=== PATIENT | female | born 1995 | race Caucasian/White ===

== ENCOUNTER → 2017-10-08 10:32 | Outpatient (CLI) | payer MEDICARE, OTHER, MEDICAID ==
[~2017-10-08 10:32] MED LIST: FAMOTIDINE10 MG PO; FLAGYL500 MG PO; LOVENOX40 MG/0.4 SC; PRENATAL COMPLE1 TAB PO
== END | disposition home or self-care (01) ==
LOC: D.US 10:32
DX: R10.2 Pelvic and perineal pain (principal)

== ENCOUNTER 2017-12-26 22:02 | Emergency (ER) | payer MEDICAID ==
[~2017-12-26] VITALS: Ht 165.1 cm; Wt 110.5 kg
[2017-12-26 22:24] VITALS: Ht 165.1 cm; Wt 110.5 kg
[2017-12-26] MEDS ORDERED: ELIQUIS5 MG PO (22:26)
[2017-12-26] MEDS ORDERED: PAXIL10 MG (22:27)
[2017-12-26] MEDS ORDERED: NEXIUM20 MG PO (22:27)
[2017-12-26] MEDS ORDERED: PRAVACHOL20 MG (22:27)
[2017-12-26] MEDS ORDERED: TOPAMAX15 MG (22:27)
[2017-12-27 00:06] LABS: APPEARANCE HAZY (CLEAR); BILIRUBIN NEGATIVE (NEGATIVE); COLOR YELLOW (YELLOW); GLUCOSE NEGATIVE (NEGATIVE); HCG URINE NEGATIVE (NEGATIVE); KETONE NEGATIVE (NEGATIVE); NITRITE NEGATIVE (NEGATIVE); PROTEIN NEGATIVE (NEGATIVE); SPECIFIC GRAVITY 1.015 (1.005-1.020); UROBILINOGEN NORMAL (NORMAL)
[2017-12-27 00:09] LABS: CKMB 0.7 U/L (0.0-3.6); CREATINE KINASE 146 UL (21-215)
[2017-12-27 00:09] LABS: AMORPHOUS SEDIMENT <1+ /lpf (NONE SEEN); BACTERIA MODERATE /hpf (NONE SEEN); EPITHELIAL CELLS 0-5 /hpf (0-5); GRANULAR CAST RARE /lpf (NONE SEEN); RED CELLS - URINE 25-50 /hpf (0-5); WHITE CELLS - URINE 0-5 /hpf (0-5)
[2017-12-27 00:12] LABS: UDS - AMPHET NEGATIVE QUAL (NEGATIVE); UDS - BARB NEGATIVE QUAL (NEGATIVE); UDS - BENZO NEGATIVE QUAL (NEGATIVE); UDS - COCAINE NEGATIVE QUAL (NEGATIVE); UDS - OPIATE POSITIVE QUAL (NEGATIVE); UDS - PCP NEGATIVE QUAL (NEGATIVE); UDS - THC NEGATIVE QUAL (NEGATIVE)
[2017-12-27 02:01] VITALS: BP 97/51
== END 2017-12-27 02:02 | disposition home or self-care (01) ==
LOC: D.ER 22:02
PROVIDERS: Family Medicine
DX: R07.89 Other chest pain (principal); Z86.2 Personal history of diseases of the blood and blood-forming organs and certain disorders involving the immune mechanism; Z86.73 Personal history of transient ischemic attack (TIA), and cerebral infarction without residual deficits; Z86.718 Personal history of other venous thrombosis and embolism; Z79.01 Long term (current) use of anticoagulants

== ENCOUNTER 2017-12-30 10:23 | Emergency (ER) | payer MEDICAID ==
[~2017-12-30] VITALS: Ht 165.1 cm; Wt 110.5 kg
[~2017-12-30 10:23] MED LIST changes: +ELIQUIS5 MG PO; +NEXIUM20 MG PO; +PAXIL10 MG; +PRAVACHOL20 MG; +TOPAMAX15 MG
[2017-12-30 10:28] VITALS: Ht 165.1 cm; Wt 110.5 kg
[2017-12-30 11:02] LABS: BASOPHILS 0.4 % (0-2); EOSINOPHILS 1.4 % (0-7); HEMATOCRIT 39.7 % (36.0-48.0); HEMOGLOBIN 12.8 g/dL (12-16); IMMATURE GRANULOCYTES 0.3 % (0-5); LYMPHOCYTES 28.2 % (15-50); MCH 28.6 pg (26.0-34.0); MCHC 32.2 g/dL (31.0-37.0); MCV 88.6 fL (80.0-100.0); MONOCYTES 6.5 % (2-11); NEUTROPHILS 63.2 % (40-80); PLATELET COUNT 280 10x3/uL (130-400); RBC 4.48 10x6/uL (4.00-5.40); RDW 14.8 % (11.5-14.5); WBC 7.9 10x3/uL (4.8-10.8)
[2017-12-30 11:28] LABS: ALBUMIN 3.2 g/dL (3.4-5.0); ALKALINE PHOSPHATASE 100 U/L (46-116); ALT (SGPT) 27 U/L (10-68); CALC OSMOLALITY 274 mosm/kg (275-300); CALCIUM 8.8 mg/dL (8.5-10.1); CARBON DIOXIDE 26.8 mmol/L (21.0-32.0); CHLORIDE - SERUM 105 mmol/L (98-107); CREATININE - SERUM 0.6 mg/dL (0.6-1.3); GLUCOSE 102 mg/dL (74-106); POTASSIUM - SERUM 4.1 mmol/L (3.5-5.1); PROTEIN - SERUM 7.7 g/dL (6.4-8.2); SODIUM 138 mmol/L (136-145); UREA NITROGEN 11 mg/dL (7-18); eGFR NON AFRICAN AMERICAN > 90 mL/min (90-120)
[2017-12-30 11:39] LABS: TROPONIN-I < 0.017 ng/mL (0.000-0.060)
[2017-12-30 18:38] VITALS: BP 105/63
== END 2017-12-30 18:39 | disposition home or self-care (01) ==
LOC: D.ER 10:23
PROVIDERS: Family Medicine
DX: R07.81 Pleurodynia (principal); Z86.718 Personal history of other venous thrombosis and embolism; Z86.69 Personal history of other diseases of the nervous system and sense organs; E11.9 Type 2 diabetes mellitus without complications; K21.9 Gastro-esophageal reflux disease without esophagitis

== ENCOUNTER 2018-05-31 14:44 | Emergency (ER) | payer MEDICAID ==
[~2018-05-31] VITALS: Ht 165.1 cm; Wt 112.7 kg
[2018-05-31 14:56] VITALS: Ht 165.1 cm; Wt 112.7 kg
[2018-05-31] MEDS ORDERED: MEDROL DOSE PACK4 MG PO (16:31)
[2018-05-31] MEDS ORDERED: VOLTAREN75 MG PO (16:31)
[2018-05-31 18:03] VITALS: BP 99/61
== END 2018-05-31 18:03 | disposition home or self-care (01) ==
LOC: D.ER 14:44
DX: M25.50 Pain in unspecified joint (principal); M79.10 Myalgia, unspecified site; Z86.73 Personal history of transient ischemic attack (TIA), and cerebral infarction without residual deficits; G40.909 Epilepsy, unspecified, not intractable, without status epilepticus; E11.9 Type 2 diabetes mellitus without complications

== ENCOUNTER 2018-07-15 08:56 | Emergency (ER) | payer MEDICAID ==
[~2018-07-15] VITALS: Ht 165.1 cm; Wt 114.1 kg
[~2018-07-15 08:56] MED LIST changes: +MEDROL DOSE PACK4 MG PO; +VOLTAREN75 MG PO
[2018-07-15 09:06] VITALS: Ht 165.1 cm; Wt 114.1 kg
[2018-07-15] MEDS ORDERED: ULTRAM50 MG PO (12:47)
[2018-07-15] MEDS ORDERED: ROBAXIN500 MG PO (12:47)
[2018-07-15 13:49] VITALS: BP 109/61
== END 2018-07-15 13:50 | disposition home or self-care (01) ==
LOC: D.ER 08:56
DX: M54.5 Low back pain (principal); M25.551 Pain in right hip; R20.2 Paresthesia of skin; V43.52XA Car driver injured in collision with other type car in traffic accident, initial encounter; Y93.89 Activity, other specified; Y92.410 Unspecified street and highway as the place of occurrence of the external cause; Z86.73 Personal history of transient ischemic attack (TIA), and cerebral infarction without residual deficits; G40.909 Epilepsy, unspecified, not intractable, without status epilepticus; E11.9 Type 2 diabetes mellitus without complications

== ENCOUNTER 2020-08-31 09:22 | Observation (INO) | payer MEDICAID ==
[~2020-08-31] VITALS: Ht 165.1 cm; Wt 122.7 kg
[2020-08-31] VITALS (11 sets, daily range): BP systolic 115–135; BP diastolic 55–76; Ht 165.1 cm; Wt 122.7 kg
--- NOTE | ~2020-08-31 | OP ---
PATIENT NAME: LASHAWN GOODWIN MEDICAL RECORD: [id number] :95 LOCATION:[id number] ADMISSION DATE:08/31/20 SURGEON: JOSE GUADALUPE LUDWIG MD DATE OF OPERATION: 08/31/2020 PREOPERATIVE DIAGNOSES: 1. Menorrhagia. 2. Dysmenorrhea. POSTOPERATIVE DIAGNOSES: 1. Menorrhagia. 2. Dysmenorrhea. PROCEDURES: Total laparoscopic hysterectomy, bilateral salpingectomy. FINDINGS: Normal uterus, tubes, and ovaries. ANESTHESIA: General. ESTIMATED BLOOD LOSS: 50 mL. COMPLICATIONS: None. SPECIMENS: Uterus, cervix, bilateral tubes. Sponge, lap and needle counts were correct. The patient tolerated the procedure well and was taken to the recovery room in stable condition. DESCRIPTION OF PROCEDURE: The risks, benefits and alternatives of the procedure were explained to the patient. Informed consent was obtained. She was taken to the OR where general anesthetic was given. She was prepped and draped in normal sterile fashion and placed in lithotomy position. Kirkland speculum was placed in the vagina. Single-toothed tenaculum was placed on the anterior lip of the cervix. A Massive Analytic uterine manipulator was placed into the endometrial cavity and the colpotomizer ring sutured to the cervix at 12 o'clock using a 0 Vicryl stitch. A 15-blade scalpel was used to make an infraumbilical incision and a 5-mm trocar placed under direct laparoscopic visualization into the abdominal cavity, insufflated with CO2 gas to obtain a pneumoperitoneum. The patient was placed in Trendelenburg and the left lower quadrant 11-mm and a 5-mm trocar were placed. The Olympus Thunderbeat device was used throughout the procedure for transection, ligation and hemostasis. We initially identified the fallopian tubes bilaterally, transected these with the Thunderbeat device, removing the tubes through the 11-mm trocar. We then identified the uteroovarian ligaments bilaterally, transected these with the Thunderbeat as well maintaining excellent hemostasis. We then came across the round ligaments bilaterally and dissected the anterior and posterior leaf of the broad ligament. A bladder flap was created, pushing the bladder down below the colpotomizer ring. We then skeletonized the uterine vasculature. Using blunt dissection, we then transected and ligated the uterine vessels using the Thunderbeat device as well. An anterior and posterior colpotomy was performed with the monopolar hook. The remaining portion of the specimen was amputated. The specimen was removed through the vagina and the vaginal cuff was closed with a running 2-0 V-Loc stitch. There was excellent hemostasis. Bilateral ureteral peristalsis was seen. We then removed all CO2 gas. All trocars were removed. We placed Micah along the vaginal cuff. We then closed the skin with 4-0 Monocryl, injected OPERATIVE REPORT [id number] LASHAWN GOODWIN DA with 0.5% Marcaine and the patient was taken to recovery room in stable condition. TRANSINT:[id number] Voice Confirmation ID: [id number] DOCUMENT ID: [id number] JOSE GUADALUPE LUDWIG MD CC: [id number] DICTATION DATE: 09/06/20 1153 CLINICAL EDUCATION ASSISTANT: 09/06/20 1254 DIS IN 09/01/20 [facility] [address] [place] [address]
[~2020-08-31 09:22] MED LIST changes: +ALDACTONE50 MG PO; +COREG12.5 MG PO; +EMGALITY IM; +ROBAXIN500 MG PO; +TOPAMAX100 MG PO; -TOPAMAX15 MG; +TOPAMAX50 MG PO; +ULTRAM50 MG PO; +VITAMIN D10000 UNIT PO; +[UNRECOGNIZED DRUG - OTHER] PO
[2020-08-31 09:53] LABS: BASOPHILS 0.3 % (0-2); EOSINOPHILS 1.1 % (0-7); IMMATURE GRANULOCYTES 0.3 % (0-5); LYMPHOCYTE ABS# 1.88 10x3/uL (1.18-3.74); MCHC 32.5 g/dL (31.0-37.0); MCV 92.2 fL (80.0-100.0); MEAN PLATELET VOLUME 9.8 fL (7.4-10.4); MONOCYTES 6.4 % (2-11); NEUTROPHIL ABS# 5.33 10x3/uL (1.56-6.13); NEUTROPHILS 67.9 % (40-80); PLATELET COUNT 301 10x3/uL (130-400); RBC 4.34 10x6/uL (4.00-5.40); RDW 13.7 % (11.5-14.5); WBC 7.8 10x3/uL (4.8-10.8)
[2020-08-31 10:01] LABS: INR 1.18 (0.85-1.17); PROTIME 13.9 SECONDS (11.6-15.0)
[2020-08-31 10:04] LABS: CALC OSMOLALITY 272 mosm/kg (275-300); CALCIUM 8.9 mg/dL (8.5-10.1); CARBON DIOXIDE 23.9 mmol/L (21.0-32.0); CHLORIDE - SERUM 103 mmol/L (98-107); CREATININE - SERUM 0.9 mg/dL (0.6-1.3); GLUCOSE 99 mg/dL (74-106); POTASSIUM - SERUM 3.9 mmol/L (3.5-5.1); SODIUM 137 mmol/L (136-145); UREA NITROGEN 11 mg/dL (7-18); eGFR NON AFRICAN AMERICAN 81 mL/min (90-120)
[2020-08-31] MEDS ORDERED: LOVENOX40 MG/0.4 SC (11:44)
--- NOTE | 2020-08-31 16:21 | NUR ---
PT RECEIVED VIA BED TO ROOM 1278. PT AAOx3, 2L O2 VIA NC, VSS, SEE FLOWSHEET FOR DOC. PT SMILING, TALKING, REQUESTING IV TO BE RESITED. RATES PAIN 10/10, REQUESTING PAIN MED. LR INFUSING AT 150ML/H TO LEFT UPPER ARM PIV. 3 LAP INCISIONS TO ABD ARE C/D WITH DERMABOND INTACT. ZHENG CATH DRAINING DARK YELLOW URINE TO BEDSIDE DRAINAGE, APPROX 45ML NOTED IN UROMETER. SCANT BRIGHT RED BLOOD NOTED VAGINALLY, PERIPAD PLACED TO MONITOR. SCD'S ON LE BILAT AND ON PUMP. WILL NOTIFY MD OF NEED FOR POST-OP ORDERS.
--- NOTE | 2020-08-31 17:02 | NUR ---
PT ADMIN PERCOCET 10/325MG PO ORDERED PRN PAIN, SEE EMAR FOR DOC. PT PROVIDED WITH WATER, JELLO, AND SALTINE CRACKERS PER REQUEST AND PER ORDER TO ADVANCE DIET TOLERATED. PT DENIES FURTHER NEEDS. SRUx2, CL IN REACH.
--- NOTE | 2020-08-31 17:19 | NUR ---
PT CALLS OUT REQUESTING SOMETHING FOR NAUSEA. ZOFRAN ADMIN IV ORDERED, SEE EMAR FOR DOC. PERIPAD CHECKED, NO ADDITIONAL BLEEDING NOTED. PT REASSURED. DENIES FURTHER NEEDS AT THIS TIME. EATING JELLO AND STATING HER NAUSEA IS BETTER. SRUx2, CL IN REACH. PT MOTHER AT BEDSIDE.
--- NOTE | 2020-08-31 18:10 | NUR ---
THIS RN TO ROOM TO ADMIN LOVENOX ORDERED. PT SITTING UP IN BED, EATING CLEAR LIQUID DINNER. DENIES NAUSEA OR ANY NEEDS. INSTRUCTED TO CALL WHEN FINISHED EATING SO LOVENOX CAN BE ADMIN. UNDERSTANDING VERBALIZED. Kelvin, CL IN REACH. PT MOTHER AT BEDSIDE.
--- NOTE | 2020-08-31 18:15 | NUR ---
POC DISCUSSED WITH PT REGARDING ORDER TO REMOVE ZHENG AND AMBULATE. PT STATES SHE IS CURRENTLY VERY "OUT OF IT" STILL FROM ANESTHESIA AND PAIN MEDS, AND IS "SEEING FIVE OF YOU" TO THIS RN. WILL WAIT TO D/C ZHENG AND AMBULATE.
--- NOTE | 2020-08-31 19:20 | NUR ---
REPORT TO PM SHIFT.
--- NOTE | 2020-08-31 20:00 | NUR ---
PT REC'D IN BED AT THIS TIME. STATES THAT PAIN IS 10/10. LUNGA CLEAR. BS PRESENT BUT HYPOACTIVE. INCISIONS X3 INTACT WITHOUT S/S OF INFECTION NOTED. ZHENG CATH PATENT WITH NENA URINE NOTED. EMPTIED 650 FROM BAG AT THIS TIME. SCDS IN PLACE AND FUNCTIONAL. CALL LIGHT IN PT REACH. NO DISTRESS NOTED. Daron ROMAN RN
--- NOTE | 2020-08-31 20:25 | NUR ---
22G STARTED TO THE RT HAND X1 ATTEMPT. IV FLUIDS RESTARTED AT 125 ML/HR ER MD ORDER. PT TOLERATED WELL. Daron PIZANO, RN
--- NOTE | 2020-08-31 21:44 | NUR ---
PT MEDICATED WITH PHENERGAN AND PERCOCET FOR PAIN OF 10/10. NO DISTRESS NOTED AT THIS TIME. Daron ROMAN RN
--- NOTE | 2020-08-31 22:50 | NUR ---
PT REC'D IN BED AT THIS TIME. STATES THAT PAIN REMAINS A 10 BUT IT IS "TOLERABLE." PT REQUESTING MORE PUDDING AT THIS TIME. PT DENIES DIZZINESS. NO DISTRESS NOTED. FLEY WITH CLEAR YELLOW URINE. NO DISTRESS NOTED. Daron ROMAN, RN
--- NOTE | 2020-08-31 23:35 | NUR ---
ZHENG CATHETER DISCONTINUED 1100 ML NOTED TO ZHENG. Daron ROMAN RN
--- NOTE | 2020-09-01 01:37 | NUR ---
PT REC'D IN BED AT THIS TIME. DENIES PAIN AT THIS TIME. REQUESTING REGULAR DIET. PT GIVEN SANDWICH TRAY AT THIS TIME. O2 DISCONTINUED AT THIS TIME. Daron ROMAN RN
--- NOTE | 2020-09-01 02:35 | NUR ---
PT IV BEEPING. NEW BAG UP AT 0237. PT VERBALIZES NEED TO VOID. PT UP TO BATHROOM AND VOIDED 400 ML WITHOUT DIFFICULTY. PT THEN P TO AMBULATE IN THE HALLWAY. NO DISTRESS NOTED. Daron ROMAN RN
[2020-09-01 03:07] VITALS: BP 119/61
--- NOTE | 2020-09-01 03:10 | NUR ---
PT MEDICATED FOR PAIN LEVEL OF 10/10. NO DISTRESS NOTED. Daron ROMAN RN
--- NOTE | 2020-09-01 04:00 | NUR ---
PT STATES THAT PAIN IS IMPROVED. STATES THAT FIBROMYALGIA PAIN IS A 9/10 HOWEVER INCICIONAL PAIN IS STILL A 10/10. PT SITTING UP IN BED AT THIS TIME ON PHONE. NO OBVIOUS DISTRESS NOTED. Daron ROMAN RN
[2020-09-01 06:33] VITALS: BP 109/62
--- NOTE | 2020-09-01 06:33 | NUR ---
PT REC'D IN BED ASLEEP AT THIS TIME. WASILY AWAKENED. CONTINUES TO RATE PAIN AT 10/10 TO SURGICAL SITES. IV TO RT HAD REMAINS PATENT THIS AM. VOIDED X1 WITHOUT DIFFICULTY SINCE CATHETER REMOVAL. TOLERATING REGULAR DIET THIS SHIFT. NO VOMITING NOTED. SCDS IN PLACE. AFEBRILE. NO OXYGEN REQUIREMENTS SINCE APPROX 0100. NO DISTRESS NOTED. Daron ROMAN RN
[2020-09-01 07:25] VITALS: BP 101/55
--- NOTE | 2020-09-01 07:25 | NUR ---
RECEIVED PT LYING IN SEMI-CLINE'S POSITION. WAKES UPON ENTERING ROOM. VSS. HRRR WITHOUT AUDIBLE MURMUR. BBS CLEAR. BS X 4. ABDOMEN SOFT/NON-DISTENDED. PT STATES PASSING VERY LITTLE GAS. DENIES BM SINCE SURGERY. 3 LAP INCISIONS WITH BRUISING NOTED. NO DRAINAGE OR SWELLING NOTED TO INCISIONS. SCANT AMT OF BROWN DISCHARGE NOTED ON PERIPAD. NEG HOMANS' SIGN. PPP. MILD, NON-PITTING EDEMA NOTED TO BLE. SCDS ON BLE. PUMP ON. PT PULLS 1300 ON INCENTIVE SPIROMETER. PIV OF NS INFUSING TO RIGHT HAND AT 125 ML/HR. SITE CLEAR. PT OOB AND AMB TO BR TO VOID. STEADY GAIT NOTED. PT C/O MILD DIZZINESS.
--- NOTE | 2020-09-01 07:40 | NUR ---
PT UNABLE TO VOID. PT REQUESTS TO SHOWER. SHOWER ON AND TOILETRIES PROVIDED TO PT. PT STATES NO C/O DIZZINESS AT THIS TIME. STATES "I CAN SHOWER NOW".
--- NOTE | 2020-09-01 08:00 | NUR ---
PT AMBULATORY IN HALLS. DR LUDWIG VISITS WITH PT. ORDER RECEIVED TO DC HOME.
--- NOTE | 2020-09-01 08:26 | NUR ---
PT SITTING UP ON SIDE OF BED. CONSUMING CLEAR LIQUID DIET. TOLERATING WELL. C/O ABDOMINAL PAIN OF "10" ON 0-10 PAIN SCALE. PERCOCET 10/325 AND PHENERGAN GIVEN PO ORDERED. PT STATES "I AM ALWAYS NAUSEATED". PT INSTRUCTED ON MEDICATIONS. VERBALIZES UNDERSTANDING.
[2020-09-01] MEDS ORDERED: PERCOCET 7.5/321 TAB PO (08:54)
--- NOTE | 2020-09-01 09:10 | NUR ---
THIS NURSE TO ROOM WITH DISCHARGE PAPERS. PT STATES "DR LUDWIG TOLD ME THAT HE WAS GOING TO COME BACK AND SEE ME THIS AFTERNOON AND MAY PUT THE CATHETER BACK IN". DR LUDWIG NOTIFIED OF PT STATES. ORDER RECEIVED TO PROCEED WITH DISCHARGE AND IF PT CANNOT VOID, REPLACE ZHENG AND PT MAY CONTINUE TO DISCHARGE HOME.
--- NOTE | 2020-09-01 09:30 | NUR ---
PIV DC'D WITH CATHELON INTACT. PRESSURE BANDAGE TO SITE. PT IVAN WELL.
--- NOTE | 2020-09-01 09:40 | NUR ---
PT UNABLE TO VOID.16 [place] ZHENG CATHETER PLACED USING STERILE TECHNIQUE. DARK, CLOUDY YELLOW URINE NOTED IN BAG-350 ML. ZHENG BAG REPLACED WITH LEG BAG AND ATTACHED WITH STAT LOCK TO RIGHT THIGH. PT INSTRUCTED ON CARE OF CATHETER AND TO KEEP BAG EMPTY. PT GIVEN DISCHARGE INSTRUCTIONS. VERBALIZES UNDERSTANDING OF ALL INSTRUCTIONS. STATES "I'VE HAD A CATHETER AT HOME BEFORE AND HAVE HAD SEVERAL SURGERIES". STATES "I KNOW HOW TO TAKE CARE OF MYSELF AND MY FAMILY HELPS ME". PT GIVEN RX FOR PERCOCET. PT UP TO DRESS.
--- NOTE | 2020-09-01 09:50 | NUR ---
PT READY FOR DISCHARGE. DISCHARGED IN STABLE CONDITION VIA WHEELCHAIR PER Earnest HAMILTON RN TO PRIVATE VEHICLE.
== END 2020-09-01 09:50 | disposition home or self-care (01) ==
LOC: D.OPS 09:22 → D.LD 15:11 → D.OPS 16:46 → D.LD 16:46 → D.OPS 16:46 → D.LD 16:46 → OBSVTIME 16:46 → D.LD 09-01 09:50
PROVIDERS: Anesthesiology; ADMIT Obstetrics & Gynecology Maternal & Fetal Medicine; ATTEND Obstetrics & Gynecology Maternal & Fetal Medicine
DX: N92.0 Excessive and frequent menstruation with regular cycle (principal); N94.6 Dysmenorrhea, unspecified; R10.2 Pelvic and perineal pain; E11.9 Type 2 diabetes mellitus without complications; Z86.73 Personal history of transient ischemic attack (TIA), and cerebral infarction without residual deficits